=== PATIENT | female | born 1985 | race Caucasian/White ===

== ENCOUNTER 2021-06-18 19:49 | Emergency (ER) | payer OTHER, SELFPAY ==
--- NOTE | 2021-06-18 19:57 | ED.FEMALEGU ---
HPI - Female Genitourinary General Chief complaint: Urogenital-Female Stated complaint: Possible UTI Time Seen by Provider: 06/18/21 19:57 Source: patient Mode of arrival: ambulatory Limitations: no limitations History of Present Illness HPI Narrative: 36-year-old female presents with complaint of urinary frequency, urgency and intermittent right lower quadrant pain for 3 days. At this time she does not have any abdominal pain. Denies nausea vomiting diarrhea. Denies dysuria feels more like an irritation when urinating. No concern for STI. Did have recent intercourse 5 days ago but reports no history of UTI related to intercourse. She denies fever chills. Denies flank pain. No history of kidney stones. Reports that bowel movements are normal. Started her period yesterday. Related Data Home Medications Medication Instructions Recorded Confirmed cetirizine [Zyrtec] 10 mg PO DAILY 06/18/21 06/18/21 Allergies Allergy/AdvReac Type Severity Reaction Status Date / Time pseudoephedrine Allergy Severe EXTREME Verified 06/18/21 19:53 TACHYCARDIA Review of Systems Review of Systems: CONSTITUTIONAL: Denies fever, chills, or sweats. EYES: Denies visual changes, redness, or discharge. ENT: Denies rhinorrhea, congestion, sore throat, or otalgia. CARDIOVASCULAR: Denies chest pain, palpitations, or edema. RESPIRATORY: Denies cough or dyspnea. GASTROINTESTINAL: Reports intermittent abdominal pain. Denies nausea, vomiting, or diarrhea. GENITOURINARY: Reports frequency, urgency. Denies hematuria. SKIN: Denies rash or itching. MUSCULOSKELETAL: Denies back pain, joint pain, or myalgia. NEUROLOGIC: Denies headache, numbness, or weakness. PSYCHIATRIC: Denies anxiety or depression. All other systems reviewed are negative, except as documented in HPI. PMFSH Comments At time of signature, agree with nursing past medical, surgical, social and family history. There is no relevant family history pertinent to the presenting complaint. Exam Narrative: GENERAL: This is a well-nourished, well-developed patient, in no apparent distress. HEAD: normocephalic, atraumatic. EYES: PERRL. Sclera clear/white. Vision is grossly intact. EARS: External ears normal NOSE: External nose normal NECK: Neck supple, non-tender without lymphadenopathy, masses or thyromegaly. CARDIOVASCULAR: Regular rate and rhythm without murmurs, gallops, or rubs. RESPIRATORY: Clear to auscultation. Breath sounds equal bilaterally. No wheezes, rales, or rhonchi. GASTROINTESTINAL: Abdomen soft, non-tender, nondistended. Bowel sounds are active. No hepato-splenomegaly, or palpable masses. No guarding. SKIN: warm, Dry, intact with no suspicious lesions or rash, good texture and turgor. NEURO: awake, alert, and oriented to person, place and time. There were no obvious focal neurologic abnormalities. EXTREMITIES: Normal range of motion to all extremities. BACK: No CVA tenderness. Course Course Level of Care: Express Care Visit Vital Signs Vital signs: Vital Signs Temperature 36.4 C 06/18/21 20:00 Pulse Rate 85 06/18/21 20:00 Respiratory Rate 18 06/18/21 20:00 Blood Pressure 125/87 06/18/21 20:00 Pulse Oximetry 100 06/18/21 20:00 Temperature 36.4 C 06/18/21 20:00 Pulse Rate 85 06/18/21 20:00 Respiratory Rate 18 06/18/21 20:00 Blood Pressure 125/87 06/18/21 20:00 Pulse Oximetry 100 06/18/21 20:00 Reviewed MDM - Female Genitourinary MDM Narrative Medical decision making narrative: UA 1+ protein, otherwise normal. Offered to prescribe patient an antibiotic as a precaution due to her symptoms. She did not feel that it was necessary. Offered to transferred her to the ER for further evaluation. She did not feel was necessary due to no abdominal pain at this time. She states that she will follow-up with her primary care physician tomorrow. Patient is aware of diagnosis, understands and agrees to treatment plan. Morenita beltran
[2021-06-18 20:00] VITALS: BP 125/87; PULSE 85; RESP 18; TEMP 36.4; O2SAT 100
== END 2021-06-18 20:11 | disposition home or self-care (01) ==
PROVIDERS: Emergency Provider Nurse Practitioner Family; PCP Family Medicine
DX: R35.0 Frequency of micturition (principal); R10.31 Right lower quadrant pain
CPT/HCPCS: 81003; 99212; G0463